=== PATIENT | male | born 1945 | race Caucasian/White ===

== ENCOUNTER 2017-04-17 13:53 | Emergency (ER) | payer MEDICARE, OTHER ==
[~2017-04-17] VITALS: Ht 180.3 cm; Wt 112.0 kg
[2017-04-17 13:55] VITALS: BP 170/81; PULSE 69; RESP 17; TEMP 97.7; O2SAT 98
[2017-04-17] MEDS ORDERED: ISOS30TA3 PO (15:15)
[2017-04-17] MEDS ORDERED: [UNRECOGNIZED DRUG - CODE] (15:15)
[2017-04-17] MEDS ORDERED: CLOP75TA PO (15:15)
[2017-04-17] MEDS ORDERED: TOPR25TA PO (15:15)
[2017-04-17] MEDS ORDERED: HYDR25TA5 PO (15:15)
[2017-04-17] MEDS ORDERED: ZETI10TA5 PO (15:15)
[2017-04-17] MEDS ORDERED: COEN400C OROPHARYNG (15:16)
[2017-04-17] MEDS ORDERED: ONE-TAB PO (15:16)
[2017-04-17] MEDS ORDERED: CALCCHW25 CHEW (15:16)
[2017-04-17] MEDS ORDERED: ASPI81CH CHEW (15:16)
[2017-04-17] MEDS ORDERED: CHOL5000 PO (15:16)
[2017-04-17] MEDS ORDERED: MULT-65 PO (15:16)
--- NOTE | 2017-04-17 15:19 | PD ---
HPI Chief Complaint: Fall Time Seen by Provider: 15:10 Travel History International Travel<30 days: No Contact w/Intl Traveler<30days: No Traveled to known affect area: No History of Present Illness HPI This is a 71-year-old male who is on Plavix who presents for evaluation after a mechanical fall. He reports a prior to arrival he was at work. He reports that he was walking on a hallway which has a sticky floor when his shoes stuck and he fell, striking his face against the ground. No loss of consciousness. He had some bleeding from both nostrils which resolved after 10 minutes. He is complaining of some nasal pain. The pain is mild, aching, worse with palpation. He has a small abrasion to the bridge of the nose. His last tetanus vaccination was 1 year ago. Denies global headache, confusion or amnesia, nausea or vomiting, blurred vision, neck or back pain. He has no other complaints at this time. PFSH Past Medical History Hx Anticoagulant Therapy: Yes (PLAVIX) Cardiovascular Problems: Yes (STENTS) High Cholesterol: Yes Diabetes: Yes Patient Takes Glucophage: No Hypertension: Yes Tetanus Vaccination: > 5 Years Influenza Vaccination: Yes Past Surgical History Cardiac Surgery: Yes (STENT X5) Family History Family Myocardial Infarction: Yes Social History Alcohol Use: No Tobacco Use: No Substance Use: No Allergies-Medications (Allergen,Severity, Reaction): Coded Allergies: No Known Allergies (Unverified , 04/17/17) Reported Meds & Prescriptions Reported Meds & Active Scripts Active Reported Multi-Vitamin Daily (Multiple Vitamin) 1 Tab Tab 1 Tab PO DAILY One-A-Day Essential (Multiple Vitamin) 1 Tab 1 Tab PO DAILY Calcium + D & K (Calcium-Vitamins D & K) 500-1,000-40 Mg-Unit-Mcg Chew 1 Tab CHEW Vitamin D3 (Cholecalciferol) 5,000 Unit Cap 5,000 Units PO DAILY Coq-10 (Coenzyme Q10 (Ubidecarenone)) 400 Mg Cap 200 Mg OROPHARYNG DAILY Aspirin 81 Mg Chew 81 Mg CHEW DAILY Hyaluronic Acid Sodium Salt (Hyaluronate Sodium) 94 % Powder Zetia (Ezetimibe) 10 Mg Tab 10 Mg PO DAILY Clopidogrel (Clopidogrel Bisulfate) 75 Mg Tab 75 Mg PO DAILY Toprol XL (Metoprolol Succinate) 25 Mg Tab 25 Mg PO DAILY Isosorbide Mononitrate ER (Isosorbide Mononitrate) 30 Mg Tierra 30 Mg PO DAILY Hydrochlorothiazide 25 Mg Tab 25 Mg PO DAILY Review of Systems Except as stated in HPI: all other systems reviewed are Neg Physical Exam Narrative GENERAL: Well-developed well-nourished male in no acute distress SKIN: Warm and dry. Small abrasion noted at the bridge of the nose. HEAD: Atraumatic. Normocephalic. EYES: Pupils equal and round. No scleral icterus. No injection or drainage. ENT: No nasal bleeding or discharge. Mucous membranes pink and moist. Some dried blood noted in both nostrils. No septal hematoma. There is some soft tissue swelling to the bridge of the nose, tenderness to palpation. NECK: Trachea midline. No JVD. CARDIOVASCULAR: Regular rate and rhythm. No murmur appreciated. RESPIRATORY: No accessory muscle use. Clear to auscultation. Breath sounds equal bilaterally. GASTROINTESTINAL: Abdomen soft, non-tender, nondistended. Hepatic and splenic margins not palpable. MUSCULOSKELETAL: No obvious deformities. NEUROLOGICAL: Awake and alert. No obvious cranial nerve deficits. Motor grossly within normal limits. Normal speech. PSYCHIATRIC: Appropriate mood and affect; insight and judgment normal. Data Data Last Documented VS Vital Signs Date Time Temp Pulse Resp B/P (MAP) Pulse Ox O2 Delivery O2 Flow Rate FiO2 04/17/17 15:05 71 18 96 Room Air 04/17/17 13:55 97.7 170/81 (110) Orders Orders Ct Brain W/O Iv Contrast(Rout) (04/17/17 ) Nasal Bones (Min 3 Vws) (04/17/17 ) MDM Medical Decision Making Medical Screen Exam Complete: Yes Emergency Medical Condition: Yes Medical Record Reviewed: Yes Differential Diagnosis Nasal fracture, septal hematoma, contusion, epistaxis, intracranial hemorrhage Narrative Course 71-year-old male on aspirin presents after mechanical fall in which it is face against the ground. He has some dried blood in the naris. He has an abrasion to the bridge of the nose and some soft tissue swelling to the nose. X-ray imaging of the nose will be obtained as well as a CT of the brain. X-ray and CT imaging revealed no acute abnormalities. The patient is stable for discharge. Diagnosis Primary Impression: Nasal contusion Qualified Codes: S00.33XA - Contusion of nose, initial encounter Additional Impression: Nasal abrasion Qualified Codes: S00.31XA - Abrasion of nose, initial encounter Additional Instructions: Wash the wound gently with soap and water and apply antibiotic cream daily. Apply ice pack to the affected area several times a day 10 minutes at a time. Return for any emergent medical conditions. Med/Other Pt SpecificInfo: No Change to Meds Disposition: 01 DISCHARGE HOME Condition: Stable Imtiaz Corona Apr 17, 2017 15:19
--- NOTE | 2017-04-17 16:16 | RADRPT ---
EXAM DATE/TIME: 04/17/2017 15:47 [facility] COMPARISON: No previous studies available for comparison. INDICATIONS : Trauma, fall today. RADIATION DOSE: 56.35 CTDIvol (mGy) MEDICAL HISTORY : Hypertension. diabetes SURGICAL HISTORY : None. ENCOUNTER: Initial ACUITY: 1 day PAIN SCALE: 5/10 LOCATION: Bilateral head TECHNIQUE: Multiple contiguous axial images were obtained of the head. Using automated exposure control and adj ustment of the mA and/or kV according to patient size, radiation dose was kept as low as reasonably a chievable to obtain optimal diagnostic quality images. DICOM format image data is available electro nically for review and comparison. FINDINGS: Diffuse prominence of the CSF spaces, ventricles and cisterns. No signs of intracranial hemorrhage, a cute infarct, or mass. No fractures are seen. CONCLUSION: No acute findings. Yifan Epps MD on April 17, 2017 at 16:14 Board Certified Radiologist. This report was verified electronically.
--- NOTE | 2017-04-17 16:19 | RADRPT ---
EXAM DATE/TIME: 04/17/2017 15:26 [facility] COMPARISON: No previous studies available for comparison. INDICATIONS : Fall. Struck nose and forehead. Laceration to bridge of nose. MEDICAL HISTORY : None. SURGICAL HISTORY : None. ENCOUNTER: Initial ACUITY: 1 day PAIN SCORE: 7/10 LOCATION: Bilateral facial FINDINGS: Lateral and Jimenez views of the nasal bones demonstrate no evidence of fracture. There is no signifi cant soft tissue swelling. The infraorbital rims are intact. CONCLUSION: No acute disease. Yifan Epps MD on April 17, 2017 at 16:17 Board Certified Radiologist. This report was verified electronically.
== END 2017-04-17 16:52 | disposition home or self-care (01) ==
LOC: NEPE 15:35
DX: S00.33XA Contusion of nose, initial encounter (principal); W01.0XXA Fall on same level from slipping, tripping and stumbling without subsequent striking against object, initial encounter; Y93.01 Activity, walking, marching and hiking; Y92.89 Other specified places as the place of occurrence of the external cause
CPT/HCPCS: 70160; 70450; 99284

== ENCOUNTER 2017-04-20 11:19 | Emergency (ER) | payer MEDICARE, OTHER ==
[~2017-04-20] VITALS: Ht 175.3 cm; Wt 100.0 kg
[~2017-04-20 11:19] MED LIST: ASPI81CH CHEW; CALCCHW25 CHEW; CHOL5000 PO; CLOP75TA PO; COEN400C OROPHARYNG; HYDR25TA5 PO; ISOS30TA3 PO; MULT-65 PO; ONE-TAB PO; TOPR25TA PO; ZETI10TA5 PO; [UNRECOGNIZED DRUG - CODE]
[2017-04-20 11:20] VITALS: BP 159/77; PULSE 67; RESP 18; TEMP 98.3; O2SAT 94
--- NOTE | 2017-04-20 12:17 | PD ---
HPI Chief Complaint: Medical Clearance Time Seen by Provider: 12:10 Travel History International Travel<30 days: No Contact w/Intl Traveler<30days: No Traveled to known affect area: No History of Present Illness HPI 71-year-old male presents to emergency department requesting work release note to return back to work after a fall 3 days ago while at work. He said he was seen here for evaluation after the fall. The fall occurred at work and was work related per the patient. He has no emergent medical complaints at this time. He denies chest pain, shortness of breath, abdominal pain, vomiting, lightheadedness, dizziness, headache, hemoptysis, hematemesis, hematuria, hematochezia. No known allergies. Symptoms are mild in severity. No other modifying factors or associated signs and symptoms. PFSH Past Medical History Hx Anticoagulant Therapy: Yes (PLAVIX) Cardiovascular Problems: Yes (STENTS) High Cholesterol: Yes Diabetes: Yes Hypertension: Yes Past Surgical History Cardiac Surgery: Yes (STENT X5) Social History Alcohol Use: No Tobacco Use: No Substance Use: No Allergies-Medications (Allergen,Severity, Reaction): Coded Allergies: No Known Allergies (Unverified , 04/20/17) Reported Meds & Prescriptions Reported Meds & Active Scripts Active Reported Multi-Vitamin Daily (Multiple Vitamin) 1 Tab Tab 1 Tab PO DAILY One-A-Day Essential (Multiple Vitamin) 1 Tab 1 Tab PO DAILY Calcium + D & K (Calcium-Vitamins D & K) 500-1,000-40 Mg-Unit-Mcg Chew 1 Tab CHEW Vitamin D3 (Cholecalciferol) 5,000 Unit Cap 5,000 Units PO DAILY Coq-10 (Coenzyme Q10 (Ubidecarenone)) 400 Mg Cap 200 Mg OROPHARYNG DAILY Aspirin 81 Mg Chew 81 Mg CHEW DAILY Hyaluronic Acid Sodium Salt (Hyaluronate Sodium) 94 % Powder Zetia (Ezetimibe) 10 Mg Tab 10 Mg PO DAILY Clopidogrel (Clopidogrel Bisulfate) 75 Mg Tab 75 Mg PO DAILY Toprol XL (Metoprolol Succinate) 25 Mg Tab 25 Mg PO DAILY Isosorbide Mononitrate ER (Isosorbide Mononitrate) 30 Mg Tierra 30 Mg PO DAILY Hydrochlorothiazide 25 Mg Tab 25 Mg PO DAILY Review of Systems Except as stated in HPI: all other systems reviewed are Neg Physical Exam Narrative GENERAL: Well-nourished, well-developed elderly, male patient, in no acute distress SKIN: Warm and dry. HEAD: Atraumatic. Normocephalic. EYES: Pupils equal and round. No scleral icterus. No injection or drainage. ENT: Mucosa pink and moist. Airway patent. NECK: Trachea midline. CARDIOVASCULAR: Regular rate and rhythm. No murmur appreciated. RESPIRATORY: No accessory muscle use. Breath sounds clear and equal bilaterally. No retractions or tachypnea. GASTROINTESTINAL: Abdomen soft, non-tender, nondistended. Bowel sounds active 4 quadrants. MUSCULOSKELETAL: No obvious deformities. No clubbing. No cyanosis. No edema. NEUROLOGICAL: Awake and alert. Oriented 3. No obvious cranial nerve deficits. Motor grossly within normal limits. Normal speech. PSYCHIATRIC: Appropriate mood and affect; insight and judgment normal. Data Data Last Documented VS Vital Signs Date Time Temp Pulse Resp B/P (MAP) Pulse Ox O2 Delivery O2 Flow Rate FiO2 04/20/17 11:20 98.3 67 18 159/77 (104) 94 Room Air Orders Orders Ed Discharge Order (04/20/17 12:13) MDM Medical Decision Making Medical Screen Exam Complete: Yes Emergency Medical Condition: Yes Medical Record Reviewed: Yes Differential Diagnosis Medical clearance, normal physical examination, encounter for general medical examination Narrative Course 71-year-old male presents requesting a work release note to return back to work after a fall 3 days ago that he experienced at work. He has no current medical complaints. I instructed the patient he needs to follow-up with his primary care provider or Workmen's Comp. doctor to be released back to work. Patient verbalized understanding and agreement. Instructed patient to follow up with primary care provider. Patient verbalizes understanding and agreement with treatment plan. Patient is medically cleared and stable for discharge. Discussed reasons to return to the emergency department. Patient agrees with treatment plan. The patients vital signs are stable and the patient is stable for outpatient follow-up and treatment. Patient discharged home, stable and in no acute distress. Diagnosis Primary Impression: Encounter for general medical examination Referrals: Primary Care Physician Patient Instructions: General Instructions Additional Instructions: Follow-up with primary care provider Follow-up with workman's comp for work-related injury Return to the emergency department immediately if worsening of symptoms Med/Other Pt SpecificInfo: No Change to Meds, No Meds Exist/No RX given Disposition: 01 DISCHARGE HOME Condition: Stable Irene Hidalgo Apr 20, 2017 12:16
== END 2017-04-20 12:20 | disposition home or self-care (01) ==
LOC: NEPK 11:19
DX: Z00.8 Encounter for other general examination (principal); Z79.01 Long term (current) use of anticoagulants; E11.9 Type 2 diabetes mellitus without complications; I10 Essential (primary) hypertension; E78.00 Pure hypercholesterolemia, unspecified; W19.XXXD Unspecified fall, subsequent encounter; Y99.0 Civilian activity done for income or pay
CPT/HCPCS: 99281